=== PATIENT | female | born 1975 | race Hispanic/Latino ===

== ENCOUNTER 2020-03-06 08:09 | Emergency (ER) | payer SELFPAY ==
[~2020-03-06] VITALS: Ht 160 cm; Wt 81.2 kg
[2020-03-06] MEDS ORDERED: CLONIDINE HCL 0.1 MG TAB PO ONE (08:30)
--- NOTE | 2020-03-06 08:48 | Emergency Department Note ---
History of Present Illnes History of Present Illness Chief Complaint: General Medicine Complaints History of Present Illness This is a 44 year old female states she was seen at [facility] 4 days ago for dry throat and fullness, told she may have hypothyroidism, f/u with pcp the next day Friday, had labs drawn and u/s thyroid; states she did f/u and has appt with PCP tomorrow to discuss results. Comes today c/o continued dry throat no difficulty swallowing, no SOB, states she has to keep a bottle of water with her at all times because her throat is so dry. No polyuria or polyphagia. States she took her Metoprolol yesterday but forgot to take it today - no CP, JACKSON, SOB Historian: Patient Arrival Mode: Car Supervisor [place] Required: No Onset (how long ago): week(s) (2) Location: anterior neck, throat Quality: fullness feeling in neck, dry throat Radiation: Reports non-radiation Severity: mild Onset quality: gradual Duration (how long): week(s) Timing of current episode: constant Chronicity: new Context: Denies recent illness Relieving factors: none Exacerbating factors: none Associated symptoms: Reports denies other symptoms Treatments prior to arrival: none Past Medical/Family History Physician Review I have reviewed the patient's past medical and family history. Any updates have been documented here. Past Medical History Recent Fever: No Clinical Suspicion of Infectio: No New/Unexplained Change in Ment: No Past Medical History: Hypertension, Diabetes Past Surgical History: Social History Smoking Cessation: Never Smoker Counseling Performed: No Alcohol Use: None Any Illegal Drug Use: No TB Exposure/Symptoms: No Physically hurt or threatened: No Family History Family history of heart diseas: No Other Any Pre-Existing Lines (PICC,: No Review of Systems Review of Systems Constitutional: Reports no symptoms EENTM: Reports as per HPI; Denies throat pain Cardiovascular: Reports no symptoms Respiratory: Reports no symptoms Gastrointestinal: Reports no symptoms Genitourinary: Reports no symptoms Musculoskeletal: Reports no symptoms Integumentary: Reports no symptoms Neurological: Reports no symptoms Psychological: Reports no symptoms Endocrine: Reports no symptoms Hematological/Lymphatic: Reports no symptoms Physical Exam Related Data Allergies: Coded Allergies: No Known Allergies (Unverified , 03/06/20) Triage Vital Signs Vital Signs Date Time Temp Pulse Resp B/P (MAP) Pulse Ox O2 Delivery O2 Flow Rate FiO2 03/06/20 08:15 97.8 88 18 225/119 100 Room Air Vital signs reviewed: Yes Physical Exam CONSTITUTIONAL Constitutional: Present well-developed, Present well-nourished HENT HENT: Present normocephalic, Present atraumatic, Present oropharynx clear/moist, Present nose normal; Absent oropharyngeal exudate, Absent tonsillar excudate, Absent pharynx abnormal, Absent erythema HENT L/R: Present left ext ear normal, Present right ext ear normal EYES Eyes: Reports PERRL, Reports conjunctivae normal NECK Neck: Present ROM normal, Present supple, Present thyromegaly (bilateral moderately enlarged thyroid/goiter, no discrete mass); Absent stridor, Absent cervical adenopathy PULMONARY Pulmonary: Present effort normal, Present breath sounds normal CARDIOVASCULAR Cardiovascular: Present regular rhythm, Present heart sounds normal, Present capillary refill normal, Present normal rate GASTROINTESTINAL Abdominal: Present soft, Present nontender, Present bowel sounds normal GENITOURINARY Genitourinary: Present exam deferred SKIN Skin: Present warm, Present dry MUSCULOSKELETAL Musculoskeletal: Present ROM normal NEUROLOGICAL Neurological: Present alert, Present oriented x 3, Present no gross motor or sensory deficits PSYCHOLOGICAL Psychological: Present mood/affect normal, Present judgement normal Procedures 12 Lead ECG Interpretation ECG Interpretation : ECG: ECG 1 Supervisor Marble: Interpreted by ED physician Date: Mar 06, 2020 Time: 08:12 Rhythm: sinus rhythm Rate: normal (86) QRS axis: normal ST segments normal: Yes T waves normal: Yes Other findings: LVH Assessment & Plan Medical Decision Making MDM pt appears to have goiter and is getting appropriate workup, labs and U/S already done, has appt tomorrow with PCP to discuss results. She has no difficulty swallowing and I had patient swallow water for me in triage. My only concern currently is her HTN for which she did not take her medicine today, pt asymptomatic. Check ECG, control BP Reassessment Reassessment Pt given Clonidine 0.1 mg po - BP improved. Take meds as prescribed, keep F/U appt with PCP tomorrow as scheduled. RTED prn Assessment & Plan Final Impression: (1) Goiter (2) Hypertension Depart Disposition: HOME, SELF-CARE Last Vital Signs Date Time Temp Pulse Resp B/P (MAP) Pulse Ox O2 Delivery O2 Flow Rate FiO2 03/06/20 08:15 97.8 88 18 225/119 100 Room Air Medications in the ED Clonidine HCl 0.1 mg ONCE ONCE PO Last administered on 03/06/20at 08:31; Admin Dose 0.1 MG; Start 03/06/20 at 08:30; Stop 03/06/20 at 08:31; Status UNV LEISA VOGT MD Mar 06, 2020 08:47
== END 2020-03-06 09:40 | disposition home or self-care (01) ==
LOC: ER 08:17
DX: E04.9 Nontoxic goiter, unspecified (principal); I10 Essential (primary) hypertension
CPT/HCPCS: 93005; 99283